=== PATIENT | female | born 1930 | race Caucasian/White ===

== ENCOUNTER 2017-07-26 09:09 | Emergency (ER) | payer MEDICARE ==
[2017-07-26] MEDS ORDERED: Lidocaine 1% 20 ML MDV ONE (09:50)
[2017-07-26] MEDS ORDERED: cefTRIAXone\\ROCEPHIN 1 GM VIAL ONE (09:50)
[2017-07-26] MEDS ORDERED: Bacitracin Zinc 1 Packet ONE (10:17)
== END 2017-07-26 10:30 | disposition home or self-care (01) ==
LOC: NAV ERS 09:09
DX: S81.812A Laceration without foreign body, left lower leg, initial encounter (principal); S50.12XA Contusion of left forearm, initial encounter; S50.312A Abrasion of left elbow, initial encounter; L08.9 Local infection of the skin and subcutaneous tissue, unspecified; I10 Essential (primary) hypertension; Z86.73 Personal history of transient ischemic attack (TIA), and cerebral infarction without residual deficits; Z79.82 Long term (current) use of aspirin; Z79.899 Other long term (current) drug therapy; W23.0XXA Caught, crushed, jammed, or pinched between moving objects, initial encounter
CPT/HCPCS: 96372; J0696; J2001